=== PATIENT | female | born 1980 | race Caucasian/White ===

== ENCOUNTER 2020-08-13 00:31 | Emergency (ER) | payer OTHER ==
[~2020-08-13] VITALS: Ht 167.6 cm; Wt 97.5 kg
[~2020-08-13 00:31] MED LIST: BACTRIM DS TAB1 EACH PO; CYMBALTA; DARVOCET-N 1001 EACH PO; DEPAKOTE250 MG; ERY-TAB500 MG PO; HYDROCODON-ACE1 EACH PO; IBUPROFEN 400400 M1 PO; IBUPROFEN 800800 MG PO; LAMICTAL 25 MG25 M1; MEDROLDOSEPACK PO; NORCO 5-325 TA1 EACH PO; SEROQUEL200 MG; TUSSIONEX PENNKI1 ML PO; VENTOLIN17 GM INH; XANAX 0.25 MG0.25 MG; ZPAK PO
[2020-08-13] MEDS ORDERED: LAMICTAL XR250 MG PO (00:48)
[2020-08-13] MEDS ORDERED: SEROQUEL XR 30300 M1 PO (00:49)
[2020-08-13] MEDS ORDERED: BRINTELLIX20 MG PO (00:49)
[2020-08-13] MEDS ORDERED: SEROQUEL 25 MG25 MG PO (00:50)
[2020-08-13] MEDS ORDERED: PRILOSEC OTC20 MG PO (00:50)
[2020-08-13] MEDS ORDERED: NEURONTIN300 MG PO (00:50)
[2020-08-13] MEDS ORDERED: PROPRANOLOL 1010 M1 PO (00:51)
[2020-08-13] MEDS ORDERED: CLARITIN10 M3 PO (00:53)
[2020-08-13] MEDS ORDERED: DERMACINRX5000 UNI1 PO (00:53)
[2020-08-13] MEDS ORDERED: FLONASE 0.05%50 MCG NASAL (00:53)
[2020-08-13] MEDS ORDERED: AMOXICILLIN875 MG PO (02:26)
[2020-08-13 02:40] VITALS: BP 130/67
== END 2020-08-13 02:48 | disposition home or self-care (01) ==
LOC: ER 00:31
DX: R51.9 Headache, unspecified (principal); Z20.822 Contact with and (suspected) exposure to COVID-19; H66.93 Otitis media, unspecified, bilateral; F17.210 Nicotine dependence, cigarettes, uncomplicated; K21.9 Gastro-esophageal reflux disease without esophagitis; Z88.5 Allergy status to narcotic agent; Z88.6 Allergy status to analgesic agent; Z79.899 Other long term (current) drug therapy; Z98.51 Tubal ligation status; Z98.890 Other specified postprocedural states; Z90.710 Acquired absence of both cervix and uterus; Z90.49 Acquired absence of other specified parts of digestive tract